=== PATIENT | female | born 1960 | race Caucasian/White ===

== ENCOUNTER 2016-12-08 06:48 | Inpatient (IN) | payer OTHER, MEDICARE ==
--- NOTE | 2016-12-08 08:10 | CT ---
CT OF THE ABDOMEN AND PELVIS: Date: 12/08/16 COMPARISON: None. HISTORY: Vomiting, small bowel obstruction, abdominal discomfort, history of abdominal tumors. TECHNIQUE: Serial axial CT imaging is obtained at 5 mm intervals from lung bases through pubic symphysis withou t contrast. Coronal reformatted imaging obtained. FINDINGS: The lack of intravenous and oral contrast significantly limits this examination, specifically evalua tion of the viscera, bowel, vascular structures, and for lymphadenopathy. Partially imaged left lower lobe demonstrates nonspecific lateral pleural thickening, as well as fredy ear areas of pulmonary parenchymal opacity, which may be on the basis of infectious pneumonitis or v olume loss. Imaged right lung is grossly unremarkable. No free intraperitoneal air is evident. There is small volume ascites in the right upper and left upper quadrants. There is ventral thickeni ng of the omentum, suspicious for the possibility of peritoneal carcinomatosis. There is heterogenei ty of the hepatic parenchyma superiorly within the left lobe and anteriorly within the right lobe, p oorly evaluated on noncontrast enhanced imaging. Underlying liver lesions cannot be excluded. Spleen , pancreas, and adrenal glands are grossly unremarkable. Neither kidney appears obstructed. No evide nce for nephrolithiasis. There is a calcification in the upper pole of the right kidney measuring 8. 0 mm, which appears cortical in nature. There is hyperdense soft tissue mass within the retroperitoneum, best seen on image 38, with a compo nent measuring up to 2.6 cm in AP dimension in the paraaortic region and up to 2.5 cm in AP dimensio n in the region of the inferior vena cava, evidence of lymphadenopathy/retroperitoneal tumor. There is a soft tissue mass with internal calcification within the mesentery of the mid right abdome n anterior to the region of the abdominal aortic bifurcation measuring up to 4.3 x 2.6 cm. The adjac ent mesentery demonstrates increased linear density radiating from this tumor mass. There is ascites within the pelvis, most prominent within the pelvic cul-de-sac. There are diverticula within the sigmoid colon. No evidence for diverticulitis is seen. There are numerous loops of markedly abnormal small bowel seen throughout the abdomen/pelvis. This i ncludes markedly distended fluid-filled loops of small bowel within the mid left abdomen and left up per quadrant, with small bowel loops distended to 4.6 cm. In addition, there are markedly thick-wall ed loops of dilated small bowel as well, best seen on axial image 45. This suggests a high grade sma ll bowel obstruction associated with the mesenteric tumor mass mentioned in the right lower quadrant with associated mesenteric reaction. Question a history of carcinoid tumor. Vessels are poorly assessed. Degenerative changes are noted within bilateral hips. The bones appear osteopenic. There are foci of sclerotic change noted within L4 vertebral body, which may be related to prior kyphoplasty. Clinical correlation is required to exclude the possibility of osseous metasta tic disease. There are a few subtle areas of sclerotic change noted within the sacrum, especially on the left, im age 71. There are also subtle scattered areas of subcentimeter sclerotic change within lumbar verteb ral bodies, suspicious for metastatic disease, including L2 and L3 vertebral bodies. IMPRESSION: Severe dilation and wall thickening of numerous loops of small bowel throughout the abdomen and pelv is, primarily left-sided, evidence of high grade small bowel obstruction on the basis of a mesenteri c tumor mass suspicious for carcinoid tumor. There is lymphadenopathy in the retroperitoneum suggest ing metastatic disease. Ascites with thickening of the omentum may signify peritoneal carcinomatosis . The degree of disease may be underestimated, specifically the solid abdominal viscera, secondary t o the noncontrast enhanced nature of this exam. There are areas of sclerotic change noted within sac rum and lumbar vertebral bodies which may signify osseous metastatic disease. Dr. Reyes made aware at 0745 hours on 12/08/16. CODE CR. POS: [facility]
[2016-12-08] MEDS ORDERED: Artificial Tear Sol 15 ML BOT EA EYE PRN (09:49)
[2016-12-08] MEDS ORDERED: Eucerin (Mineral Oil/Petrolatum,White) 30 gm Jar TOP PRN (09:49)
[2016-12-08] MEDS ORDERED: Chloraseptic Spray 180 ml Bottle PO PRN (09:49)
[2016-12-08] MEDS ORDERED: Sodium Chloride 0.65% Nasal 44 ML BOT EA NARE PRN (09:49)
[2016-12-08] MEDS ORDERED: Labetalol HCl 100 MG/20 ML VIAL SLOW IVP PRN (09:49)
[2016-12-08] MEDS ORDERED: Fleet Enema 133 ML BOT PR PRN (09:49)
[2016-12-08] MEDS ORDERED: Dicyclomine HCl 20 mg/2 ml Ampule IM PRN (09:49)
[2016-12-08] MEDS ORDERED: Bisacodyl 10 MG SUPP PR PRN (09:49)
[2016-12-08] MEDS ORDERED: Promethazine HCl 25 MG/ML VIAL IM/IV PRN (09:49)
--- NOTE | 2016-12-08 10:22 | HP ---
PRIMARY CARE PHYSICIAN: Robert Cline M.D. in [place]. REASON FOR ADMISSION: Small-bowel obstruction. 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 She is getting all her treatment at [facility] in [place]. The patient has diagnosis of carcinoid tumor since 2007. The patient keeps getting recurrent small-bowel obstruction. She is transferred from [facility]. Patient reports that a couple of days ago she was having abdominal pain and that is why she went to [facility] where she was treated with IV fluid and nausea medicine and pain medication and she was discharged home, but her pain was not improved and pain came back again last night and that is why she decided to go to [facility], she went there because of increasing abdominal pain, nausea, and vomiting. She had last bowel movement yesterday. She is passing gas only little amount. She has diffuse abdominal pain, crampy in nature, 8/10 in intensity. She also had episode of vomiting. She denies any hematemesis or melena or hematochezia. She denies any diarrhea. She denies any abdominal distension. At [facility], she was given 2 mg of Dilaudid and IV fluid. The patient was also given Phenergan and Zofran in [place] as well as Phenergan was given en route for vomiting. X-ray abdomen over there showed small-bowel obstruction. Initially from [facility], they tried to transfer her to [facility] in [facility], but they did not accept her, and that is why patient was transferred to our hospital. Patient had CT abdomen and pelvis in our emergency room which showed severe dilatation and wall thickening of numerous loops of small bowel throughout abdomen and pelvis, primarily left-sided consistent with high grade small-bowel obstruction with mesenteric tumor, lymphadenopathy in retroperitoneum consistent with metastatic disease. Ascites and thickening of the omentum consistent with peritoneal carcinomatosis. This patient does not want to put NG tube in the emergency room. She reports that this type of problem happened in the past as well, and it gets better by itself in few days. She does not have any bowel movement since last Monday. She denies any frequent use of opioid pain medication. REVIEW OF SYSTEMS: The following complete review of systems was negative, unless otherwise mentioned in the HPI or below: Constitutional: Weight loss or gain, ability to conduct usual activities. Skin: Rash, itching. Eyes: Double vision, pain. ENT/Mouth: Nose bleeding, neck stiffness, pain, tenderness. Cardiovascular: Palpitations, dyspnea on exertion, orthopnea. Respiratory: Shortness of breath, wheezing, cough, hemoptysis, fever or night sweats. Gastrointestinal: Poor appetite, abdominal pain, heartburn, nausea, vomiting, constipation, or diarrhea. Genitourinary: Urgency, frequency, dysuria, nocturia. Musculoskeletal: Pain, swelling. Neurologic/Psychiatric: Anxiety, depression. Allergy/Immunologic: Skin rash, bleeding tendency. Please see my HPI for pertinent positive and negative. All other review of systems reviewed and negative except as mentioned in the HPI. 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 PAST SURGICAL HISTORY: Cholecystectomy, hysterectomy, knee surgery, hand surgery, and Port-A-Cath for chemotherapy. PAST PSYCHIATRIC HISTORY: Attention deficit hyperactivity disorder. SOCIAL HISTORY: Patient lives with her brother and [id number] law. She is not . She denies any tobacco, alcohol or illicit drug abuse. FAMILY HISTORY: No strong family history of premature coronary artery disease, stroke or cancer. ALLERGIES: PENICILLIN. CURRENT HOME MEDICATIONS: Hydromorphone 4 mg p.o. as needed, Phenergan 12.5 mg as needed, Zofran 8 mg as needed, octreotide 50 mcg subcu once a month and she had last injection on Monday, Synthroid 100 mcg p.o. daily, Adderall 30 mg p.o. b.i.d. EMERGENCY ROOM COURSE: Patient is getting IV fluid. PHYSICAL EXAMINATION: VITAL SIGNS: On arrival, blood pressure 160/109, pulse 78, respiratory rate 18 , temperature 97.8, saturation 96% on room air, weight 58 kilograms. GENERAL: Patient is currently alert, awake, little bit lethargic from pain medication, but arousable and follows commands. HEAD: Normocephalic, atraumatic. EYES: Pupils round and reactive to light. Extraocular muscles intact. ENT: Oropharynx within normal limits. Dry mucous membranes, no oral lesions, no pharyngeal erythema, no exudate. NECK: Supple. Range of motion is normal. No meningeal signs of irritation. LUNGS: Clear to auscultation without any rhonchi or rales. CARDIAC: S1 and S2 regular without any significant murmur. ABDOMEN: Patient has mild distension, diffuse tenderness, hypoactive bowel sounds. No mass, no organomegaly. BACK: Examination unremarkable, no CVA tenderness. EXTREMITIES: Upper extremity passive movements of all joints are normal. Lower extremity, no edema. Good peripheral pulsation. No calf tenderness. SKIN: No skin rash. HEMATOLOGICAL SYSTEM: No lymphadenopathy. PSYCHIATRIC: Normal affect. NEUROLOGIC: The patient is moving all four limbs. Speech normal, no focal neurological deficit. IMAGING AND LABORATORY DATA: 1. CT abdomen and pelvis based on my review, severe dilatation and wall thickening of small bowel, predominantly on the left side consistent with high grade small-bowel obstruction. The patient also has mesenteric tumor mass consistent with carcinoid tumor and retroperitoneal lymphadenopathy and ascites with omental thickening consistent with peritoneal carcinomatosis. 2. Blood tests done at [facility]. 3. X-ray abdomen shows suggestive of partial small-bowel obstruction. 4. BMP: Sodium 139, potassium 3.5, chloride 106, carbon dioxide 23, glucose 109, BUN 13.3, creatinine 0.7, calcium 8.10. 5. LFT, alkaline phosphatase 171, AST 39, ALT 34, total protein 5.7, albumin 2.9, amylase 44. 6. CBC: WBC 6.3, hemoglobin 12.6, and platelet 272. ASSESSMENT AND PLAN/IMPRESSION: 1. Acute small-bowel obstruction. This patient has underlying carcinoid tumor with intraperitoneal and retroperitoneal metastasis. Her small-bowel obstruction is because of carcinoid tumor. At this point, patient is refusing nasogastric tube placement. We will consult General Surgery for their opinion. We will keep her n.p.o. Will hydrate her with IV fluids with dextrose NS with KCl at 125 mL per hour. We will control her pain with fentanyl 25 mcg every 2 hourly p.r.n. and Toradol 15 mg IV q 6 hourly PRN. Will control her nausea with Zofran as well as Phenergan as needed basis. We will repeat labs tomorrow. Given the patient also has underlying carcinoid tumor, we will consult Oncology as well. We will continue SandoSTATIN while in hospital as well if oncology ok. 2. Carcinoid tumor with intraperitoneal as well as retroperitoneal metastasis. Patient is mainly followed by Oncology at [facility]. Per patient, she is supposed to get research medication that shrinks tumor, but she has not received yet. I will consult our oncologist to give their opinion. 3. Hypothyroidism. We will continue Synthroid 100 mcg p.o. daily when patient able to take p.o. intake. 4. Hypertension without previous history of hypertension. We will use p.r.n. basis hydralazine and labetalol. Current blood pressure is may be related with uncontrolled pain. 5. Chronic pain disorder. We will continue pain medication as tolerated to control her chronic and recurrent abdominal pain. 6. Hypoalbuminemia. This patient has underlying abdominal tumor. She has underlying mild to moderate protein calorie malnutrition. If this patient has to remain n.p.o. for a prolonged period of time, then we will consider total parenteral nutrition. 7. Deep venous thrombosis prophylaxis. Lovenox 40 mg subcu daily. 8. Gastrointestinal prophylaxis. Protonix 40 mg IV daily. 9. Code status: The patient is FULL CODE. I discussed with the patient and she wanted to be a FULL CODE. She is making her own decisions. Disposition plan, once her small-bowel obstruction improves, then we will start clear liquid diet and advance her diet as tolerated and ultimately she has to follow up with [facility] after discharge. We are expecting patient's stay in hospital more than 2 midnights. Plan of care discussed with the patient in detail. MTDD
[2016-12-08] MEDS: D5 0.9% NS w/ 20 mEq KCl 1,000 ML IV SCH ×3 (10:28→18:42)
[2016-12-08 12:07] VITALS: BMI 22.6
[2016-12-08] MEDS: Ketorolac Tromethamine 30 MG/ML VIAL IVP PRN ×2 (12:41→20:00)
[2016-12-08] MEDS: Ondansetron HCl/PF 4 MG/2 ML Vial IVP PRN ×2 (12:45→20:00)
[2016-12-08] MEDS ORDERED: FLU VACC QS2017-18 36 mo. & older 0.5 ML SYRINGE IM ONE (16:00)
[2016-12-08] MEDS: Promethazine HCl 25 MG/ML VIAL SLOW IVP PRN ×2 (17:40→23:16)
[2016-12-08] MEDS: Fentanyl 100 MCG/2 ML VIAL SLOW IVP PRN ×2 (17:41→23:15)
--- NOTE | 2016-12-08 18:34 | CON ---
DATE OF CONSULTATION: 12/08/2016 REQUESTING PHYSICIAN: Gokul Daniel M.D. HISTORY OF PRESENT ILLNESS: This is a 56-year-old woman with known history of stage IV carcinoid [facility]. The patient presented with worsening abdominal pain and distention over the last 2 days. Last bowel movement or flatus was 2 days ago. She denies any fevers or chills. Previous to this, the p atient was passing loose stools. She reports 2 episodes of nonbilious, nonbloody emesis prior to pr esentation to the emergency department. She denies any fevers or chills. PAST MEDICAL HISTORY: Significant for stage IV carcinoid tumor. Other pertinent past medical inclu nancy hypothyroidism. PAST SURGICAL HISTORY: Pertinent for cholecystectomy, hysterectomy, right knee arthroplasty, right chest wall Port-A-Cath placement. SOCIAL HISTORY: The patient currently lives with her brother and [id number]. She denies any cig arette smoking, ethanol or illicit drug abuse. MEDICATIONS: Include levothyroxine 100 mcg p.o. daily, long-acting octreotide subcutaneously once a month as well as octreotide 50 mcg subcutaneously twice daily. ALLERGIES: PENICILLIN. REVIEW OF SYSTEMS: A 10-point review of systems essentially unremarkable except for as stated in pa st medical history and chief complaint. PHYSICAL EXAMINATION: GENERAL: This reveals a 56-year-old thin appearing woman who is in no acute distress. VITAL SIGNS: Currently includes blood pressure 145/79, pulse 84, respirations 16, temperature 98.3 degrees Fahrenheit, and oxygen saturation 98% on room air. HEENT: Reveals normocephalic and atraumatic. HEART: Reveals regular rate and rhythm, no murmurs or gallops auscultated. LUNGS: Clear to auscultation bilaterally. Breathing is regular and unlabored. ABDOMEN: Firm and protuberant. She has mild tenderness to palpation with no gross rebound tenderne ss present. Liver and spleen are nonpalpable below costal margins. She has palpable solid masses i n the right greater than left lower abdomen. NEUROLOGIC: Reveals no focal deficits present. PERTINENT LABORATORY DATA: I have personally reviewed CT scan of the abdomen and pelvis which is a noncontrast study revealing markedly dilated small bowel with no clear transition zone. There are s oft tissue masses which are noted in the right lower quadrant with some mesenteric swirling. There is mild ascites. There are abnormal densities in the lumbar spine as well as right retroperitoneum. IMPRESSION: 1. Acute small bowel obstruction. 2. Stage IV carcinoid tumor with extensive metastasis. RECOMMENDATIONS: Conservative management including bowel rest, IV hydration. We will obtain small bowel follow through with Gastrografin. This may be diagnostic and yet therapeutic in defining the anatomy of the small bowel obstruction. There is no acute surgical indication for this patient at t his time.
--- NOTE | 2016-12-08 18:55 | CON ---
DATE OF CONSULTATION: 12/08/2016 REASON FOR CONSULTATION: Carcinoid tumor. HISTORY OF PRESENT ILLNESS: The patient is a 56-year-old female who was diagnosed with carcinoid tu hilda in 2007. She is under the care of Dr. Honorio Sousa at [facility] in [place]. She was last s een several days ago on Monday. She gets Sandostatin injection monthly and octreotide subcu b.i.d. She had an acute onset of abdominal pain and presented to the [place] ER for evaluation. She was noted to have a small-bowel obstruction. An attempt was made to transfer to [facility] in [place], but apparently they did not accept her, so she was transferred to our facility. Surgery is curr ently seeing her. We were asked to give her opinion regarding her treatment. PAST MEDICAL HISTORY: 1. Carcinoid tumor with metastasis to the retroperitoneum and bone. 2. Hypothyroidism. PAST SURGICAL HISTORY: Cholecystectomy, hysterectomy, knee surgery, hand surgery, and a MediPort pl acement. ALLERGIES: PENICILLIN. HOME MEDICATIONS: 1. Tylenol p.r.n. 2. Dilaudid 4 mg q.4 h. 3. Synthroid 100 mcg daily. FAMILY HISTORY: Noncontributory. SOCIAL HISTORY: Single, lives with family in [place]. No alcohol, tobacco or illicit drug use. REVIEW OF SYSTEMS: CONSTITUTIONAL: No fever, chills, night sweats. EYES: No blurred or double vision. ENT: No pain, hoarseness, sore throat, or dysphagia. CARDIOVASCULAR: No chest pain, palpitations or syncope. RESPIRATORY: No shortness of breath, dyspnea on exertion or orthopnea. GASTROINTESTINAL: No nausea, vomiting, diarrhea. Positive for constipation. GENITOURINARY: No dysuria or hematuria. MUSCULOSKELETAL: No joint or back pain. SKIN: No rash or pruritus. HEMATOLOGIC: No bleeding, bruising or clotting. NEUROLOGIC: Positive for weakness, no headache, numbness, tingling or seizure activity. PSYCHIATRIC: No anxiety or depression. PHYSICAL EXAMINATION: VITAL SIGNS: Temperature is 98.3, pulse is 84, respiratory rate 16, BP is 145/79. She is 98% on ro om air. GENERAL: Well-developed, well-nourished female, in no acute distress. HEENT: Normocephalic, atraumatic. Pupils equal and reactive to light. NECK: Supple. CARDIOVASCULAR: Regular rate and rhythm. LUNGS: Clear to auscultation. ABDOMEN: Mildly distended. Bowel sounds are positive. EXTREMITIES: No clubbing, cyanosis or edema. SKIN: No rash. HEMATOLOGIC: No petechia or purpura. NEUROLOGICAL: Nonfocal. PSYCHIATRIC: The patient is alert and oriented. PERTINENT LABORATORY AND X-RAYS: Current WBCs 6.34, hemoglobin 12.6, hematocrit 39.0, platelet coun t 272,000. She has 78% neutrophils, 10% lymphocytes. Sodium 139, potassium 3.5, chloride 106, CO2 is 23, BUN is 13, creatinine is 0.7, calcium is 8.1, total protein 5.7, albumin 2.9, bilirubin is 0. 3, AST is 39, ALT is 34, alkaline phosphatase is 171. Abdominal and pelvis CT showed a small amount of ascites in the abdomen confirmed peritoneal carcinomatosis and dilatation of the small bowel con sistent with obstruction. IMPRESSION: 1. Carcinoid tumor on Sandostatin therapy. 2. Small-bowel obstruction. DISCUSSION: We will contact the patient's oncologist at [facility] and asked to fax her daily chem o regimen. She does state she gets octreotide twice daily subcu, but it is 50 units, patient is unc lear of the mg. I think she will be fine should she not receive her shots over the next day or two as I anticipate discharge shortly. No further recommendations. She will follow up with her doctor at [facility]. Thank you for the consult.
[2016-12-08 20:28] LABS: Bilirubin Small (Negative); Blood, Urine Negative (Negative); Glucose, Urine (Dipstick) Negative (Negative); Ketone, Urine Negative (Negative); Nitrite Negative (Negative); Protein, Urine (Dipstick) Trace mg/dL (Neg-Trace); Urobilinogen 0.2 mg/dL (0.2-1.0)
[2016-12-08 20:30] LABS: Bacteria/HPF Rare-Few HPF (None Seen)
[2016-12-08 20:33] LABS: RBC/HPF None Seen HPF (0-3)
[2016-12-08 20:34] LABS: Hyaline Casts/LPF 0-3 HYALINE CAST LPF (0-3 Hyaline)
[2016-12-09] MEDS: Ketorolac Tromethamine 30 MG/ML VIAL IVP PRN ×4 (02:25→21:20)
[2016-12-09] MEDS: D5 0.9% NS w/ 20 mEq KCl 1,000 ML IV SCH ×3 (02:26→18:06)
[2016-12-09] MEDS: Ondansetron HCl/PF 4 MG/2 ML Vial IVP PRN ×5 (03:01→23:41)
[2016-12-09] MEDS: Promethazine HCl 25 MG/ML VIAL SLOW IVP PRN ×3 (06:27→19:32)
[2016-12-09 06:44] LABS: #Eosinphils 0.1 thou/uL (0.0-0.7); #Lymphocytes 0.6 thou/uL (1.20-3.40); #Monocytes 0.9 thou/uL (0.11-0.59); #Neutrophils 5.7 thou/uL (1.40-6.50); %Basophils 0.4 % (0.0-1.0); %Eosinophils 0.9 % (0.0-10.0); %Lymphocytes 8.6 % (21.0-51.0); %Monocytes 11.9 % (0.0-10.0); Hematocrit 40.3 % (36.0-47.0); Mean Platelet Volume 8.4 fL (7.4-10.4); Red Blood Cell (RBC) Count 4.47 mill/uL (4.20-5.40); White Blood Cell (WBC) Count 7.3 thou/uL (4.8-10.8)
[2016-12-09 07:02] LABS: ALT (SGPT) 20 U/L (8-55); AST (SGOT) 18 U/L (5-34); Alkaline Phosphatase 147 U/L (40-150); Anion Gap 9 mmol/L (10-20); BUN (Urea Nitrogen) 17 mg/dL (9.8-20.1); Bilirubin, Total 0.2 mg/dL (0.2-1.2); Calc. Creatinine Clearance 92 mL/min (70-130); Carbon Dioxide 24 mmol/L (22-29); Chloride 112 mmol/L (98-107); Estimated GFR-MDRD Greater than 90; Globulin 2.8 g/dL (2.4-3.5); Magnesium 1.3 mg/dL (1.6-2.6); Phosphorus 2.7 mg/dL (2.3-4.7); Protein, Total 5.5 g/dL (6.0-8.3)
[2016-12-09] MEDS: Pantoprazole 40 MG VIAL IVP SCH (08:30)
[2016-12-09] MEDS: Enoxaparin Sodium 40 MG/0.4 ML SYRINGE SC SCH (08:31)
[2016-12-09] MEDS ORDERED: Magnesium Sulfate 4 GM in Sodium Chloride 0.9% 250 ML 250 ML IVPB SCH (08:45)
--- NOTE | 2016-12-09 14:07 | PDOC.PN ---
- Subjective Encounter Start Date: 12/09/16 Encounter Start Time: 08:20 Pt seen for followup re: small bowel obstruction. Says she feels okay. Mld LUQ pain. Nausea+, no fevers or chills. having loose stools. - Objective Resuscitation Status: Resuscitation Status FULL:Full Resuscitation MAR Reviewed: Yes Vital Signs & Weight: Vital Signs (12 hours) Temp Pulse Resp BP Pulse Ox 12/09/16 11:20 99.0 F 80 14 128/76 96 12/09/16 08:01 99.3 F 82 20 12/09/16 07:35 99.3 F 82 20 132/80 97 12/09/16 04:05 99.0 F 85 18 155/87 H 98 Weight Weight 127 lb 13.89 oz I&O: 12/08/16 12/09/16 12/10/16 06:59 06:59 06:59 Intake Total 2865 Balance 2865 Result Diagrams: 12/09/16 06:15 12/09/16 06:15 Phys Exam - Physical Examination Constitutional: NAD HEENT: moist MMs Neck: supple Respiratory: no wheezing, no rales, no rhonchi, clear to auscultation bilateral Cardiovascular: RRR Gastrointestinal: soft Mild RUQ tenderness, no guarding or rigidity, hypoactive bowel sounds Musculoskeletal: pulses present Neurological: moves all 4 limbs Psychiatric: normal affect Skin: no rash Dx/Plan (1) Small bowel obstruction Code(s): K56.609 - UNSP INTESTNL OBST, UNSP TO PARTIAL VERSUS COMPLETE OBST Status: Acute (2) Hypothyroidism Code(s): E03.9 - HYPOTHYROIDISM, UNSPECIFIED Status: Chronic (3) Metastatic carcinoid tumor to bone Code(s): C7B.03 - SECONDARY CARCINOID TUMORS OF BONE Status: Chronic - Plan DVT proph w/SCDs * . Review of Systems - Review of Systems Constitutional: negative: Fever, Chills, Sweats, Weakness, Malaise Cardiovascular: negative: Chest Pain, Palpitations, Orthopnea, Paroxysmal Noc. Dyspnea, Edema, Light Headedness Gastrointestinal: Nausea, Abdominal Pain, Diarrhea. negative: Vomiting, Constipation, Melena, Hematochezia - Medications/Allergies Allergies/Adverse Reactions: Allergies Allergy/AdvReac Type Severity Reaction Status Date / Time Penicillins Allergy Verified 12/08/16 10:06 Medications: Current Medications Artificial Tears (Tears Renewed 15ml Bottle) 0 drop EA EYE PRN PRN PRN Reason: Dry Eyes Bisacodyl (Dulcolax) 10 mg KY Q24H PRN PRN Reason: Constipation Dicyclomine HCl (Bentyl) 10 mg IM QID PRN PRN Reason: GI Cramping Enoxaparin Sodium (Lovenox) 40 mg SC 0900 [facility] Last Admin: 12/09/16 08:31 Dose: 40 mg Fentanyl (Sublimaze) 25 mcg SLOW IVP Q2H PRN PRN Reason: Severe Pain (7-10) Last Admin: 12/08/16 23:15 Dose: 25 mcg Hydralazine HCl (Apresoline) 10 mg SLOW IVP Q4H PRN PRN Reason: SBP GREATER THAN 160 Potassium Chloride/Dextrose/Sod Cl (D5 0.9% Ns W/ 20 Meq Kcl) 1,000 mls @ 125 mls/hr IV .Q8H [facility] Last Admin: 12/09/16 08:54 Dose: 1,000 mls Ketorolac Tromethamine (Toradol) 30 mg IVP Q6H PRN PRN Reason: Moderate Pain (4-6) Stop: 12/13/16 12:00 Last Admin: 12/09/16 08:36 Dose: 30 mg Labetalol HCl (Normodyne) 20 mg SLOW IVP Q4H PRN PRN Reason: SBP GREATER THAN 160 Mineral Oil/White Petrolatum (Eucerin Cream) 0 gm TOP BIDPRN PRN PRN Reason: Dry Skin Ondansetron HCl (Zofran) 4 mg IVP Q6H PRN PRN Reason: Nausea/Vomiting Last Admin: 12/09/16 08:45 Dose: 4 mg Pantoprazole Sodium (Protonix) 40 mg IVP DAILY [facility] Last Admin: 12/09/16 08:30 Dose: 40 mg Phenol (Chloraseptic Roma 180 Ml Bot) 0 ml PO PRN PRN PRN Reason: Sore Throat Promethazine HCl (Phenergan) 12.5 mg SLOW IVP Q6H PRN PRN Reason: Nausea/Vomiting Last Admin: 12/09/16 12:09 Dose: 12.5 mg Sodium Biphosphate/Sodium Phosphate (Fleet Enema) 133 ml [place] ONE PRN PRN Reason: Constipation Stop: 12/11/16 09:50 Sodium Chloride ([place] Nasal Roma 0.65%) 0 ml EA NARE QIDPRN PRN PRN Reason: Nasal Congestion
[2016-12-09] MEDS ORDERED: Acetaminophen 325 MG TAB PO PRN (17:14)
[2016-12-09] MEDS ORDERED: HYDROmorphone 2 MG TAB PO PRN (17:14)
--- NOTE | 2016-12-09 19:28 | PRG ---
DATE OF SERVICE: 12/09/2016 SUBJECTIVE: The patient is hospital day #2 for a possible small bowel obstruction. Overnight, the patient had three bowel movements. Denies any nausea above her norm secondary to her cancer. This morning, the patient states that she is hungry. We will start her on clear liquid diet. PHYSICAL EXAMINATION: VITAL SIGNS: The patient is afebrile. Vital signs are stable. GENERAL: The patient appears to be resting comfortably in her hospital bed. She is alert and orien marcus x4. HEENT: Unremarkable. CHEST: Clear to auscultation. ABDOMEN: Soft, flat, nontender, and has hypoactive bowel sounds. EXTREMITIES: The patient is neurovascularly intact x4. LABORATORY FINDINGS: White blood cell count is 7.3, hemoglobin 12.7, hematocrit 40.3, and platelets 357,000. Sodium 141, potassium 3.9, chloride 112, CO2 of 24, BUN 17, creatinine 0.64, glucose 104. ASSESSMENT: Probable resolving partial small bowel obstruction. PLAN: Plan will be to start clear liquid diet and if she tolerates this, we will advance her tomorr ow. The patient should continue ambulation, pain control, nausea control and we will see her again in the morning. The examination evaluation of laboratory findings were all done in conjunction with Dr. Saeed this morning.
[2016-12-09] MEDS: HYDROmorphone 2 MG TAB PO PRN (23:40)
[2016-12-10] MEDS: D5 0.9% NS w/ 20 mEq KCl 1,000 ML IV SCH ×3 (01:45→17:51)
[2016-12-10] MEDS: Promethazine HCl 25 MG/ML VIAL SLOW IVP PRN ×2 (04:07→21:38)
[2016-12-10] MEDS: Ketorolac Tromethamine 30 MG/ML VIAL IVP PRN ×3 (04:12→21:38)
[2016-12-10] MEDS: Levothyroxine Sodium 100 MCG TAB PO SCH (06:15)
[2016-12-10] MEDS: Enoxaparin Sodium 40 MG/0.4 ML SYRINGE SC SCH (08:34)
[2016-12-10] MEDS: Pantoprazole 40 MG VIAL IVP SCH (08:34)
[2016-12-10] MEDS: HYDROmorphone 2 MG TAB PO PRN ×2 (08:39→17:48)
[2016-12-10] MEDS: Ondansetron HCl/PF 4 MG/2 ML Vial IVP PRN ×2 (12:17→17:52)
--- NOTE | 2016-12-10 12:20 | PDOC.PN ---
- Subjective Encounter Start Date: 12/10/16 Encounter Start Time: 12:19 still having loose stools tolerating po intake advance diet no f/c no n/v - Objective Resuscitation Status: Resuscitation Status FULL:Full Resuscitation MAR Reviewed: Yes Vital Signs & Weight: Vital Signs (12 hours) Temp Pulse Resp BP Pulse Ox 12/10/16 08:00 98.1 F 71 18 116/78 96 12/10/16 04:00 98.5 F 76 14 118/69 96 Weight Weight 127 lb 13.89 oz I&O: 12/09/16 12/10/16 12/11/16 06:59 06:59 06:59 Intake Total 2865 4025 Balance 2865 4025 Result Diagrams: 12/09/16 06:15 12/09/16 06:15 Phys Exam - Physical Examination Constitutional: NAD HEENT: PERRLA Neck: no JVD Respiratory: no wheezing Cardiovascular: no significant murmur Gastrointestinal: soft Neurological: moves all 4 limbs Psychiatric: A&O x 3 Skin: normal turgor Dx/Plan (1) Diarrhea Code(s): R19.7 - DIARRHEA, UNSPECIFIED Status: Acute (2) Small bowel obstruction Code(s): K56.609 - UNSP INTESTNL OBST, UNSP TO PARTIAL VERSUS COMPLETE OBST Status: Acute (3) Hypothyroidism Code(s): E03.9 - HYPOTHYROIDISM, UNSPECIFIED Status: Chronic (4) 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
--- NOTE | 2016-12-10 15:26 | PRG ---
DATE OF SERVICE: 12/10/2016 We are seeing Ms. Chun in consultation for a possible bowel obstruction secondary to her stage 4 carcinoid disease process. The patient yesterday was started on clear liquid diet which she has t olerated. She is passing gas. Her abdomen is nontender this morning. Her vital signs have been st able and she has been afebrile. We will advance her diet today and barring any significant changes, we will sign off and may be contacted if there is a change. The evaluation, examination, and labor atory findings were all done with Dr. Saeed this morning during rounds.
[2016-12-11] MEDS: Ondansetron HCl/PF 4 MG/2 ML Vial IVP PRN ×2 (00:08→10:34)
[2016-12-11] MEDS: HYDROmorphone 2 MG TAB PO PRN (00:08)
[2016-12-11] MEDS: D5 0.9% NS w/ 20 mEq KCl 1,000 ML IV SCH (02:13)
[2016-12-11] MEDS: Ketorolac Tromethamine 30 MG/ML VIAL IVP PRN (05:51)
[2016-12-11] MEDS: Promethazine HCl 25 MG/ML VIAL SLOW IVP PRN (05:51)
[2016-12-11] MEDS: Levothyroxine Sodium 100 MCG TAB PO SCH (06:09)
[2016-12-11 06:36] LABS: Anion Gap 6 mmol/L (10-20); BUN (Urea Nitrogen) 9 mg/dL (9.8-20.1); BUN/Creatinine Ratio 14.75; Calc. Creatinine Clearance 97 mL/min (70-130); Calcium 7.7 mg/dL (7.8-10.44); Carbon Dioxide 21 mmol/L (22-29); Chloride 111 mmol/L (98-107); Estimated GFR-MDRD Greater than 90; Phosphorus 2.7 mg/dL (2.3-4.7)
[2016-12-11] MEDS: Pantoprazole 40 MG VIAL IVP SCH (08:41)
[2016-12-11] MEDS: Enoxaparin Sodium 40 MG/0.4 ML SYRINGE SC SCH (08:41)
--- NOTE | 2016-12-11 10:26 | PDOC.PN ---
- Subjective Encounter Start Date: 12/11/16 Encounter Start Time: 10:25 Patient seen and examined. No new complaints. No overnight events - Objective Resuscitation Status: Resuscitation Status FULL:Full Resuscitation MAR Reviewed: Yes Vital Signs & Weight: Vital Signs (12 hours) Temp Pulse Resp BP Pulse Ox 12/11/16 07:55 98.6 F 73 14 116/76 95 12/11/16 04:00 97.9 F 79 14 121/75 94 L 12/11/16 00:00 99 F 75 14 133/82 96 Weight Weight 127 lb 13.89 oz I&O: 12/10/16 12/11/16 12/12/16 06:59 06:59 06:59 Intake Total 4025 1940 Balance 4025 1940 Result Diagrams: 12/09/16 06:15 12/11/16 06:00 Phys Exam - Physical Examination Constitutional: NAD HEENT: PERRLA Neck: no JVD Respiratory: no wheezing Cardiovascular: no significant murmur Gastrointestinal: soft, non-tender, no distention Musculoskeletal: pulses present Neurological: moves all 4 limbs Psychiatric: A&O x 3 Dx/Plan (1) Diarrhea Code(s): R19.7 - DIARRHEA, UNSPECIFIED Status: Acute (2) Small bowel obstruction Code(s): K56.609 - UNSP INTESTNL OBST, UNSP TO PARTIAL VERSUS COMPLETE OBST Status: Acute (3) Hypothyroidism Code(s): E03.9 - HYPOTHYROIDISM, UNSPECIFIED Status: Chronic (4) 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
[2016-12-11 12:55] VITALS: BP 114/78; TEMP 97.8
--- NOTE | 2016-12-11 20:49 | DIS ---
DATE OF ADMISSION: 12/08/2016 DATE OF DISCHARGE: 12/11/2016 PRIMARY CARE PHYSICIAN: Robert Cline M.D. CONSULTANTS: Dr. Saeed and Hematology/Oncology. DISCHARGE DIAGNOSES: 1. Small-bowel obstruction, resolved. 2. 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 3. Hypothyroidism, stable. 4. Hypertension, stable. 5. Chronic pain disorder, continue home pain medications. 6. Hypoalbuminemia, stable. DISCHARGE MEDICATIONS: The patient's discharge medications are the same as admit medications. BRIEF HOSPITAL COURSE: A 56-year-old pleasant lady came into the hospital with a small-bowel obstru ction diagnosed in the ER with CT scan. The patient was admitted, she was tread by Dr. Saeed and He matology/Oncology was consulted. Dr. Saeed recommended conservative management. She improved with this treatment, clear liquid diet was started yesterday, she tolerated that and we have advanced the diet, which she is tolerating as well. She is medically stable and is cleared from his standpoint to be discharged. Oncology evaluated the patient and recommended that she could be off the simvasta tin and she could resume it once she is able enough to go to [facility]. Right now, patient is med ically stable to be discharged with an outpatient follow up with PCP and [facility] for further anthony atment of the carcinoid. She is asked to come back to the emergency room in case symptoms recur. Total time for this discharge took 35 minutes.
== END 2016-12-11 14:30 | disposition home or self-care (01) | DRG 389 ==
LOC: ERS 06:48 → SURG A 08:20
PROVIDERS: ADMIT Internal Medicine; ATTEND Internal Medicine
DX: K56.609 Unspecified intestinal obstruction, unspecified as to partial versus complete obstruction (principal); C7A.00 Malignant carcinoid tumor of unspecified site; C7B.03 Secondary carcinoid tumors of bone; C7B.04 Secondary carcinoid tumors of peritoneum; E03.9 Hypothyroidism, unspecified; E88.09 Other disorders of plasma-protein metabolism, not elsewhere classified; F90.9 Attention-deficit hyperactivity disorder, unspecified type; G89.4 Chronic pain syndrome
CPT/HCPCS: 74176; 80053; 80069; 81001; 83605; 83735; 84100; 85025; 87015; 87045; 87046; 87324; 87449; 87899; 96360; 96361; C9113; J1642; J1650; J1885; J2405; J2550; J3010; J3475; J7050